=== PATIENT | male | born 1955 | race American Indian/Alaskan Native ===

== ENCOUNTER 2016-12-06 13:24 | Emergency (ER) | payer MEDICARE ==
[2016-12-06] MEDS ORDERED: NACL 0.9% 1000 ML 1,000 ML ONE (13:28)
[2016-12-06] MEDS ORDERED: NACL 0.9% 1000 ML 1,000 ML IV ONE (13:34)
[2016-12-06 13:47] VITALS: BP 121/88
--- NOTE | 2016-12-06 13:48 | Emergency Department Report ---
ED CPR HPI - General Stated Complaint: CARDIAC ARREST Time Seen by Provider: 12/06/16 13:34 - History of Present Illness Initial Comments: The patient was in route via nonemergent transport to hospice. A witnessed cardiac arrest. Paramedics arrived at the scene and found the patient in asystole. They initiated CPR and placed an endotracheal tube. The patient received ACLS medications and route to the hospital. He had medics over 30 minutes of unsuccessful resuscitative efforts and route. He arrived in V. tach which spontaneously resolved as I was beginning to cardiovert him. He had the return of spontaneous circulation and a blood pressure very transiently. CPR continued. The medics did state that the patient had a DO NOT RESUSCITATE form but it was not properly signed. According to the medics the stated that she could "voche for it" according to the medics. However they were not comfortable with discontinuing resuscitative efforts. MD Complaint: collapsed during rest -: minute(s) Place: other (en route to Hospice) Initial Findings in the Field: systole (found in asystole by medics) ROSC in the Field: No Associated Injuries: No Treatments Prior to Arrival: intubation, epinephrine mgs # ED Review of Systems ROS: Stated complaint: CARDIAC ARREST Other details as noted in HPI Comment: Unobtainable due to pts medical conditions ED Past Medical Hx - Past Medical History Additional medical history: Stage 4 cancer - Social History Other Social History: Was to be residential Hospice. ED Physical Exam - General General appearance: other (severely icteric) - Head Head exam: Present: atraumatic - Eye Eye exam: Present: other (fixed dulated) - ENT ENT exam: Present: other (dark blood puring from mouth) - Neck Neck exam: Present: normal inspection - Respiratory Respiratory exam: Present: normal lung sounds bilaterally (with AMBU) - Cardiovascular Cardiovascular Exam: Present: tachycardia - GI/Abdominal GI/Abdominal exam: Present: distended - External exam: Present: normal external exam - Neurological Exam Neurological exam: Present: other (GCS 3) - Skin Skin exam: Present: other (pale/icteric) ED Course - Reevaluation(s) Reevaluation #1: The patient did have a brief return of spontaneous circulation. He was observed to have one agonal breath. Doppler did detect a femoral pulse. Therefore labs were ordered IV fluids were ordered. However the patient lost his pulse and became asystolic. He was given bicarbonate and atropine. He had no signs of life. Epineprine was ordered but it was canceled as further resuscitative efforts were obviously futile or this patient. was counseled and she understood the futility of further resuscitative efforts. She had been pronounced in asystole with no signs of life. 12/06/16 13:54 Critical care attestation.: If time is entered above; I have spent that time in minutes in the direct care of this critically ill patient, excluding procedure time. ED Disposition Clinical Impression: Cardiac arrest, Metastatic cancer Liver failure Qualifiers: Liver failure chronicity: chronic Hepatic coma status: with hepatic coma Qualified Code(s): K72.11 - Chronic hepatic failure with coma Disposition: Is pt being admited?: No Does the pt Need Aspirin: No Condition: Stable Referrals: PRIMARY CARE, [Primary Care Provider] - 3-5 Days Time of Disposition: 13:58
[2016-12-06] MEDS ORDERED: SODIUM BICARBONATE IV ONE (22:57)
[2016-12-06] MEDS ORDERED: ATROPINE ONE (22:57)
[2016-12-06] MEDS ORDERED: ADRENALIN ONE (22:57)
== END 2016-12-06 16:52 ==
LOC: ED 13:24
DX: I46.9 Cardiac arrest, cause unspecified (principal); K72.11 Chronic hepatic failure with coma
CPT/HCPCS: 99285; J0171; J0461; J7030